=== PATIENT | female | born 1940 | race Caucasian/White ===

== ENCOUNTER → 2017-02-03 | Outpatient (CLI) | payer MEDICARE, BC ==
--- NOTE | 2017-02-04 04:53 | US ---
Procedure: US LOWER EXTREMITY VEINS LIMITED/UNILATERAL/FOLLOW UP, US LOWER EXTREMITY VEINS LIMITED/UNILATERAL/FOLLOW UP Exam Date: 02/03/2017 Ordering Provider: LUNA LYLE MD Clinical Indication: LEG EDEMA Comparison: None Real time ultrasound was utilized for evaluation of the deep veins of the bilateral lower extremity. Color Doppler and pulse Doppler analysis was performed, including B-mode/grayscale imaging, Doppler spectral analysis and color flow analysis. Real time visualization of the bilateral lower extremity deep veins was accomplished. Admittance Attendant images recorded. The deep veins demonstrated no abnormal intraluminal signal. The pulse Doppler and color Doppler flow patterns demonstrated normal venous flow with respiratory variation. There was increased flow with distal augmentation maneuvers. IMPRESSION: There were no findings to suggest intraluminal clot or obstruction in the deep veins of the bilateral lower extremity. Electronically signed by: Kevin Meng MD 02/04/2017 4:52 AM CDT
--- NOTE | 2017-02-04 04:53 | US ---
Procedure: US LOWER EXTREMITY VEINS LIMITED/UNILATERAL/FOLLOW UP, US LOWER EXTREMITY VEINS LIMITED/UNILATERAL/FOLLOW UP Exam Date: 02/03/2017 Ordering Provider: LUNA LYLE MD Clinical Indication: LEG EDEMA Comparison: None Real time ultrasound was utilized for evaluation of the deep veins of the bilateral lower extremity. Color Doppler and pulse Doppler analysis was performed, including B-mode/grayscale imaging, Doppler spectral analysis and color flow analysis. Real time visualization of the bilateral lower extremity deep veins was accomplished. [employer] images recorded. The deep veins demonstrated no abnormal intraluminal signal. The pulse Doppler and color Doppler flow patterns demonstrated normal venous flow with respiratory variation. There was increased flow with distal augmentation maneuvers. IMPRESSION: There were no findings to suggest intraluminal clot or obstruction in the deep veins of the bilateral lower extremity. Electronically signed by: Kevin Meng MD 02/04/2017 4:52 AM CDT
== END | disposition home or self-care (01) ==
LOC: US 08:59
PROVIDERS: ATTEND General Practice
DX: R60.9 Edema, unspecified (principal)